=== PATIENT | male | born 1980 ===

== ENCOUNTER 2016-12-03 16:45 | Emergency (ER) | payer SELFPAY ==
[2016-12-03] MEDS ORDERED: IBUPROFEN 400 MG TABLET PO ONE (16:57)
[2016-12-03] MEDS ORDERED: IBUPROFEN 400 MG TABLET ONE ×2 (17:25→17:33)
--- NOTE | 2016-12-03 18:31 | ERNOTE ---
Date of Service: 12/03/16 Time Seen by Provider: 12/03/16 16:58 Stated Complaint: COUGH Presenting Symptoms:: cough, sore throat, runny nose, fever Source: patient Exam Limitations: no limitations Immunizations: IMMUNIZATION HX Immunizations Up to Date Yes Allergies/Adverse Reactions: Allergies No Known Allergies Allergy (Verified 12/03/16 16:55) Home Medications: HOME MEDICATIONS NK [No Home Medication] 12/03/16 [Last Taken Unknown] - History of Present Ilness Narrative: Pt. comes in with c/o fever, chills, rhinorrhea, sore throat, cough for 24 hours. Pt. denies any CP, SOB, NVD, alleviating or aggravating factors despite taking alkaseltzer sinus and dayquil. Review of Systems - Review of Systems Constitutional: Present: no symptoms reported. Absent: recent illness, fever, chills, weakness, fatigue, malaise EYE: Present: no symptoms reported ENT: Present: nose pain, nose congestion, nasal drainage, sore throat Respiratory: Present: cough. Absent: shortness of breath, wheezing Cardiology: Present: no symptoms reported. Absent: chest pain, palpitations, edema Gastrointestinal/Abdominal: Present: no symptoms reported. Absent: nausea, vomiting, diarrhea Genitourinary: Present: no symptoms reported Musculoskeletal: Present: no symptoms reported. Absent: back pain, joint pain Skin: Present: no symptoms reported. Absent: rash Neurological: Present: no symptoms reported. Absent: headache, dizziness/light- headedness, numbness, tingling Endocrine: Present: no symptoms reported Hematologic/Lymphatic: Present: no symptoms reported All Other Systems: All systems neg except as marked - Patient's Past Medical History Patient History - Medical: No pertinent hx Patient History - Cardiac/Respiratory: No pertinent hx Patient History - Cancer: No Hx of Cancer Patient History - Surgical Procedures: No surgical history - Social History Smoking Status: Never smoker Have you smoked in the past 12 months: No - Immunizations Immunizations Up to Date: Yes Physical Exam - Physical Exam General Appearance: Present: wd/wn, alert, no apparent distress, other Head Exam: Present: normal inspection Eye Exam: Normal inspection: bilateral, PERRL: bilateral, EOMI: bilateral Ears, Nose, Throat: Present: nasal congestion, pharyngeal erythema, tonsillar swelling. Absent: tonsillar exudate, dry mucous membranes Neck: Present: normal inspection, nontender. Absent: lymphadenopathy (R), lymphadenopathy (L) Respiratory: Present: no respiratory distress, normal breath sounds, no accessory muscle use, chest nontender, lungs clear Cardiovascular/Chest: Present: regular rate, rhythm, no murmur, normal peripheral pulses Gastrointestinal/Abdominal: Present: normal bowel sounds, nontender Back Exam: Present: normal inspection Extremity Exam: Present: normal inspection Neurological Exam: Present: alert, oriented, normal mood/affect, no motor/ sensory deficits Skin Exam: Present: normal color, warm/dry. Absent: pallor, skin rash ED Progress - Results and Orders Patient's Lab Results:: I have reviewed the patient's lab results. - Vital Signs Patient's Vital Signs:: I have reviewed the patient's vital signs. Vital Signs: Vital Signs 12/03/16 12/03/16 12/03/16 16:53 17:29 17:55 Temperature 38.2 C H 38.2 C H 37.3 C Pulse Rate 116 H 105 H 114 H Respiratory 14 18 88 H Rate Blood Pressure 152/87 148/83 123/76 O2 Sat by Pulse 96 96 98 Oximetry - Progress/Reassessment Chief Complaint: Cough Departure - Departure Clinical Impression: Bronchitis Upper respiratory infection Qualifiers: URI type: unspecified viral URI Qualified Code(s): J06.9 - Acute upper respiratory infection, unspecified; B97.89 - Other viral agents as the cause of diseases classified elsewhere Disposition: Home self-care Condition: Good Instructions: Upper Respiratory Infection, Adult, [id number], Form - Excuse from Work, School, or Physical Activity Additional Instructions: Please rest and increase fluid intake. Please take Robitussin CF.
[2016-12-03 19:58] VITALS: BP 140/81
== END 2016-12-03 18:50 | disposition home or self-care (01) ==
LOC: ER 16:45
DX: J40 Bronchitis, not specified as acute or chronic (principal); J06.9 Acute upper respiratory infection, unspecified; B97.89 Other viral agents as the cause of diseases classified elsewhere